=== PATIENT | male | born 1950 | race Caucasian/White ===

== ENCOUNTER → 2017-02-15 | Outpatient (CLI) | payer MEDICARE | END | disposition home or self-care (01) | LOC: GMAL 10:37 | PROVIDERS: ATTEND Family Medicine | DX: D51.3 Other dietary vitamin B12 deficiency anemia (principal); Z12.5 Encounter for screening for malignant neoplasm of prostate; E55.9 Vitamin D deficiency, unspecified | CPT/HCPCS: 82306; 82607; G0103 ==

== ENCOUNTER → 2017-04-20 | Outpatient (CLI) | payer MEDICARE ==
--- NOTE | 2017-04-21 12:51 | RAD ---
Three views of the pelvis radiographs and four views of both knees. INDICATION: Pain in left hip and right and left knees. COMPARISON: Pelvis radiograph from 05/11/2016. Right and left knee radiographs from 05/11/2016 FINDINGS: The visualized osseous structures appear mildly demineralized. Pelvis: Pelvic ring inlet appears maintained. There are moderate hypertrophic degenerative changes of both hip joints with joint space narrowing and osteophytosis, similar to prior. No acute fracture, dislocation or suspicious osseous lesions are identified. There are mild hypertrophic degenerative changes of the visualized spine. Right knee: There are mild hypertrophic degenerative changes of the right knee joint with joint space narrowing and osteophytosis primarily involving the medial and patellofemoral compartments. No acute fracture, dislocation or suspicious osseous lesions are identified. No joint effusion appreciated. There are vascular calcifications. Left knee: There are advanced, moderate to severe, hypertrophic degenerative changes of the left knee with joint space narrowing and osteophytosis primarily involving the medial and patellofemoral compartments. No acute fracture, dislocation or suspicious osseous lesions are identified. No joint effusion appreciated. There are vascular calcifications. IMPRESSION: 1. Similar osteoporotic changes involving the pelvis and both knees. 2. Similar osteoarthritic type degenerative changes of both hips and the visualized lumbar spine. No radiographic evidence for acute osseous normality the pelvis. 3. Similar moderate to severe left and moderate right osteoarthritic type degenerative changes of both knees, but no radiographic evidence for acute osseous normality of either knee. Electronically signed by: Brennon Stephen MD 04/21/2017 12:49 PM CDT Workstation: [id number]
== END | disposition home or self-care (01) ==
LOC: RAD 07:56
PROVIDERS: ATTEND Orthopaedic Surgery
DX: M25.561 Pain in right knee (principal); M25.551 Pain in right hip

== ENCOUNTER → 2017-04-30 | Outpatient (CLI) | payer MEDICARE | END | disposition home or self-care (01) | LOC: GMAL 14:19 | PROVIDERS: ATTEND Family Medicine | DX: R30.0 Dysuria (principal) ==

== ENCOUNTER → 2017-05-01 | Outpatient (CLI) | payer MEDICARE ==
--- NOTE | 2017-05-01 15:08 | RAD ---
EXAM DESCRIPTION: Chest,2 Views CLINICAL HISTORY: 67 years,Male,COUGH, R05 COMPARISON: July 16, 2016 FINDINGS: There are no consolidations. No effusions. No pneumothoraces. No nodules. Bony elements unremarkable for age. Old upper left rib fracture stable. IMPRESSION: Unremarkable chest for age stable Electronically signed by: Judah Jimenez MD 05/01/2017 3:06 PM CDT
== END | disposition home or self-care (01) ==
LOC: RAD 12:58
PROVIDERS: ATTEND Family Medicine
DX: R05 Cough (principal)

== ENCOUNTER → 2017-05-16 | Outpatient (CLI) | payer MEDICARE | END | disposition home or self-care (01) | LOC: RAD 08:02 | PROVIDERS: ATTEND Orthopaedic Surgery | DX: Z01.818 Encounter for other preprocedural examination (principal) ==

== ENCOUNTER 2017-05-29 05:50 | Inpatient (IN) | payer MEDICARE ==
--- NOTE | 2017-05-24 15:47 | HP ---
CHIEF COMPLAINT: Bilateral knee pain. HISTORY OF PRESENT ILLNESS: Mr. Yancey is a 67 year-old male with a history of severe knee pain. Mr. Yancey has a diagnosis of advanced arthritis and because of the advanced nature of the arthritis and severe knee pain associated with it, he has requested operative intervention. After discussing the risks, benefits, and alternatives to that, he has given informed consent for that. PAST SURGICAL HISTORY: He does not have a current list but has had multiple surgical interventions in the past. CURRENT MEDICATIONS: 1. Amlodipine. 2. Atorvastatin. 3. Carvedilol. 4. Ferrous gluconate. 5. Finasteride. 6. Gabapentin. 7. Hydrochlorothiazide. 8. Dexilant. 9. Metformin. 10. Prazosin. 11. Sertraline. 12. Zolpidem. 13. Cyanocobalamin. 14. Multiple vitamins. ALLERGIES: NO KNOWN DRUG ALLERGIES. FAMILY HISTORY: None pertinent to today's complaints. SOCIAL HISTORY: He does not drink, smoke or use any illicit drugs. REVIEW OF SYSTEMS: Negative except as indicated in the History of Present Illness. PHYSICAL EXAMINATION: VITAL SIGNS: Blood pressure 155/95, pulse 62, height 6' 1", weight 275. MENTAL STATUS: The patient is awake, alert, and is able to give a good history and participate in the physical. The patient is oriented to person, place and time. SKIN: Normal tone and turgor. HEENT: Normocephalic, atraumatic. Pupils equal, round and reactive. Mucosal membranes are moist. NECK: Normal range of motion. No thyromegaly, no lymphadenopathy. CHEST: Normal respiratory excursion. CARDIAC: Regular rate and rhythm. No murmurs, rubs or gallops. MUSCULOSKELETAL: The bilateral upper extremities show full active range of motion without significant pain. Sensation is intact in the extremities and were warm and well perfused. He has no deformity. No crepitus with range of motion. The bilateral hips show range of motion without significant pain. Both knees show full extension with crepitus throughout his range of motion, but his range of motion is to about 120 degrees of flexion bilaterally today. Sensation is intact. He does have slight varus deformities bilaterally but both are warm and well perfused. There does not appear to be any varus, valgus , anterior or posterior laxity. X-RAYS: X-rays show severe arthritis. ASSESSMENT: 1. Bilateral knee arthritis. PLAN: The plan at this point is for bilateral total knee arthroplasty. We have discussed the risks, benefits, and alternatives to that. In addition to the fact that a bilateral total knee arthroplasty does carry increased risk as well as the possibility of a longer recovery. He has expressed understanding of all of the risks associated with this and he has given informed consent. #[id number] [facility]
[~2017-05-29 05:50] MED LIST: LACTATED RINGERS 1,000 ML ONE; SODIUM CHL 0.9% 100ML MINI-BAG 100 ML IVPB ONE; SODIUM CHLORIDE 0.9% 250ML 250 ML ONE; VANCOMYCIN HCL INJ 1,000 MG VIAL IVPB ONE; ceFAZolin SODIUM 1 GM VIAL ONE
[2017-05-29] MEDS ORDERED: TRANEXAMIC ACID 1,000 MG/10 ML VIAL ONE ×3 (05:53→05:54)
[2017-05-29] MEDS ORDERED: SODIUM CHLORIDE 0.9% 100ML 100 ML IVPB ONE (05:58)
[2017-05-29] MEDS ORDERED: MIDAZOLAM INJ 5 MG/5 ML VIAL ONE (06:38)
[2017-05-29] MEDS ORDERED: MORPHINE SULFATE *EPIDURAL* 0.5 MG/ML VIAL ONE (06:39)
[2017-05-29] MEDS ORDERED: fentaNYL CITRATE INJ 50 MCG/ML AMP ONE (06:39)
[2017-05-29] MEDS ORDERED: ACETAMINOPHEN IV 1000MG 100 ML ONE (06:57)
[2017-05-29] MEDS ORDERED: ROCURONIUM BROMIDE 10 MG/ML VIAL ONE ×2 (07:05→10:41)
[2017-05-29] MEDS ORDERED: ELECTROLYTE-A 1,000 ML IVS ONE ×2 (08:31→12:31)
[2017-05-29] MEDS ORDERED: DEXAMETHASONE INJ 10 MG/ML VIAL ONE (09:00)
[2017-05-29] MEDS ORDERED: ceFAZolin SODIUM 1 GM VIAL ONE (09:00)
[2017-05-29] MEDS ORDERED: METOCLOPRAMIDE HCL INJ 10 MG/2 ML VIAL ONE (09:00)
[2017-05-29] MEDS ORDERED: ePHEDrine SULF 50 MG/ML ONE (09:00)
[2017-05-29] MEDS ORDERED: ONDANSETRON INJ 4 MG/2 ML VIAL ONE (09:00)
[2017-05-29] MEDS ORDERED: PHENYLEPHRINE INJ 1ML 10 MG/ML VIAL ONE (09:00)
[2017-05-29] MEDS ORDERED: SODIUM CHLORIDE 0.9% 50 ML VIAL ONE (09:00)
[2017-05-29] MEDS ORDERED: PROPOFOL 200 MG/20 ML VIAL IV ONE (09:00)
[2017-05-29] MEDS: VANCOMYCIN HCL INJ 1,000 MG VIAL IVPB ONE ×3 (09:30→12:13)
[2017-05-29] MEDS: ceFAZolin SODIUM 1 GM VIAL ONE ×4 (09:30→12:13)
[2017-05-29] MEDS: BUPIVACAINE 0.25% INJ 30 ML VIAL INJ ONE ×4 (09:50→12:51)
[2017-05-29] MEDS ORDERED: ZOLPIDEM TARTRATE 5 MG TAB PO PRN (10:07)
[2017-05-29] MEDS ORDERED: ALUMINUM & MAGNESIUM HYDROXIDE 30 ML UD PO PRN (10:07)
[2017-05-29] MEDS ORDERED: ACETAMINOPHEN 325 MG TAB PO PRN (10:07)
[2017-05-29] MEDS ORDERED: traMADol HCL 50 MG TAB PO PRN (10:07)
[2017-05-29] MEDS ORDERED: BISACODYL SUPPOSITORY 10 MG PR PRN (10:07)
[2017-05-29] MEDS ORDERED: TEMAZEPAM 15 MG CAP PO PRN (10:07)
[2017-05-29] MEDS ORDERED: SODIUM CHLORIDE 0.9% (FLUSH) 10 ML SYG IV PRN (10:07)
[2017-05-29] MEDS ORDERED: TRANEXAMIC ACID INJ 1,000 MG in SODIUM CHLORIDE 0.9% 100ML 100 ML IVPB ONE (10:07)
[2017-05-29] MEDS ORDERED: ONDANSETRON INJ 4 MG/2 ML VIAL IV PRN (10:07)
[2017-05-29] MEDS ORDERED: PROMETHAZINE HCL INJ 12.5 MG in SODIUM CHLORIDE 0.9% 50ML 50 ML IVPB PRN (10:07)
[2017-05-29] MEDS ORDERED: MAGNESIUM HYDROXIDE 30 ML UD PO PRN (10:07)
[2017-05-29] MEDS ORDERED: PROMETHAZINE HCL INJ 25 MG in SODIUM CHLORIDE 0.9% 50ML 50 ML IVPB PRN (10:07)
[2017-05-29] MEDS ORDERED: NALOXONE HCL INJ 0.4 MG/ML VIAL IV PRN (10:07)
[2017-05-29] MEDS ORDERED: HYDROcodone 5MG/APAP 325MG 1 EA TAB PO PRN (10:07)
[2017-05-29] MEDS ORDERED: BENZOCAINE-MENTH LOZ (CEPACOL) 1 EA LOZ MT PRN (10:07)
[2017-05-29] MEDS ORDERED: MORPHINE SULFATE INJ 10 MG/ML VIAL IM PRN (10:07)
[2017-05-29] MEDS ORDERED: DEX 5% W/NACL 0.45% 1000ML 1,000 ML IVS PRN (10:07)
[2017-05-29] MEDS ORDERED: ACETAMINOPHEN 500 MG TAB PO PRN (10:07)
[2017-05-29] MEDS ORDERED: MORPHINE SULFATE INJ 10 MG/ML VIAL IV PRN (10:07)
[2017-05-29] MEDS ORDERED: ceFAZolin SODIUM 1 GM VIAL IVPB ONE (10:27)
[2017-05-29] MEDS ORDERED: MORPHINE PCA 1 MG/ML 100ML 1 BAG in PREMIX BAG 1 BAG IVPB SCH (10:30)
[2017-05-29] MEDS ORDERED: MORPHINE PCA 1 MG/ML 100 ML BAG IVPB ONE (11:25)
[2017-05-29] MEDS ORDERED: INSULIN LISPRO 100 UNITS/ML PEN SUBCU ONE (13:31)
[2017-05-29] MEDS ORDERED: MORPHINE SULFATE INJ 10 MG/ML VIAL ONE (13:36)
[2017-05-29] MEDS: IV SET AND CAP CHANGE INJ INJ SCH (14:50)
[2017-05-29] MEDS ORDERED: CEFAZOLIN SODIUM 2 GRAMS IV 50 ML IVPB ONE ×2 (16:08→20:11)
[2017-05-29] MEDS: CEFAZOLIN SODIUM 2 GRAMS IV 2 GM in PREMIX BAG 1 BAG IVPB SCH ×2 (16:31→23:56)
[2017-05-29] MEDS: CELECOXIB 100 MG CAP PO SCH (16:31)
[2017-05-29] MEDS ORDERED: DEXTROSE 50% 25 GM/50 ML SYG IV PRN (17:23)
[2017-05-29] MEDS ORDERED: GLUCAGON INJ 1 MG VIAL SUBCU PRN (17:23)
[2017-05-29] MEDS ORDERED: SODIUM CHLORIDE 0.9% 250ML 250 ML ONE (17:31)
[2017-05-29] MEDS ORDERED: VANCOMYCIN HCL INJ 1,000 MG VIAL IVPB ONE (17:31)
[2017-05-29] MEDS: INSULIN LISPRO 100 UNITS/ML PEN SUBCU SCH ×2 (17:33→21:04)
[2017-05-29] MEDS: VANCOMYCIN HCL INJ 1,000 MG in SODIUM CHLORIDE 0.9% 250ML 250 ML IVPB SCH (17:34)
[2017-05-29] MEDS ORDERED: diphenhydrAMINE HCL 50 MG/ML VIAL IV PRN (18:38)
[2017-05-29] MEDS ORDERED: metFORMIN HCL 500 MG TAB ONE (20:10)
[2017-05-29] MEDS ORDERED: ATORVASTATIN 20 MG TAB PO ONE (20:10)
[2017-05-29] MEDS ORDERED: ZOLPIDEM TARTRATE 10 MG TAB ONE (20:11)
[2017-05-29] MEDS: PRAZOSIN HCL 1 MG CAP PO SCH (20:25)
[2017-05-29] MEDS: DOCUSATE CALCIUM 240 MG CAP PO SCH (20:26)
[2017-05-29] MEDS: GABAPENTIN 100 MG CAP PO SCH (20:30)
--- NOTE | 2017-05-29 20:52 | CONS ---
SUPERVISING PHYSICIAN: Fabricio Hermosillo M.D. CHIEF COMPLAINT: Bilateral knee pain. HISTORY OF PRESENT ILLNESS: This is a 67 year-old male patient who has a history of severe bilateral knee pain. He has advanced arthritis in both knees. Due to this severe pain and ongoing debilitation in both knees, he has requested Dr. Ariel Farley, orthopedic surgeon, for operative intervention. I am seeing the patient postoperatively after bilateral total knee arthroplasty. PAST MEDICAL HISTORY: 1. Diabetes mellitus type 2 on oral therapy as well as insulin therapy. 2. Coronary artery disease with a history of myocardial infarction in June 2004. 3. Hypertension. 4. Gastroesophageal reflux disease. 5. Hyperlipidemia. PAST SURGICAL HISTORY: 1. Right carpal tunnel surgery. OUTPATIENT MEDICATIONS: Per the EMR and awaiting verification. ALLERGIES: TRIPLE ANTIBIOTIC OINTMENT. FAMILY HISTORY: Positive for cancer. His mother had lung cancer and his dad had liver cancer as well as diabetes and congestive heart failure. 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 He stopped smoking in 2003. He denies any ETOH or illicit drug use. REVIEW OF SYSTEMS: GENERAL: Denies fever, fatigue or weight changes. HEENT: Denies sinus symptoms, ear pain, vision changes or sore throat. RESPIRATORY: Denies coughing, wheezing or shortness of breath. CARDIOVASCULAR: Denies chest pain, palpitations or tachycardia. GASTROINTESTINAL: Denies nausea, vomiting, diarrhea or constipation. GENITOURINARY: Denies hematuria, dysuria, nocturia. MUSCULOSKELETAL: As per the History of Present Illness. NEUROLOGIC: Denies headache, seizures or dizziness. PHYSICAL EXAMINATION: VITAL SIGNS: Temperature 99.3, heart rate 91, blood pressure 155/89, respiratory rate 16, O2 sat is 96% on 2 liters nasal cannula. GENERAL: This is a 67 year-old male patient who is lying in his hospital bed. He is in no acute distress. HEENT: Normocephalic and atraumatic. Pupils are equal and reactive. Oropharynx is clear. NECK: Supple without mass. CHEST: Clear to auscultation bilaterally. There is equal rise and fall of the chest with inspiration and expiration. HEART: Regular rate and rhythm. ABDOMEN: Soft, nondistended, non-tender. Bowel sounds are positive. EXTREMITIES: Bilateral pedal pulses are palpable at +2. There is no cyanosis or edema to the lower extremities. He has an Iceman in place to bilateral knees. NEUROLOGIC: He is somewhat lethargic but he is oriented times three. LABORATORY: Hemoglobin 13.1, hematocrit 40.1. Blood sugars have run between 168 to 233. Urine is basically within normal limits with the exception of his urine glucose is 500. All other labs and films have been reviewed vis the EMR. IMPRESSION: 1. Bilateral knee arthritis status post bilateral total knee arthroplasty per Dr. Areil Farley, orthopedic surgeon postoperative day zero. 2. Diabetes mellitus type 2. 3. Hypertension. 4. Coronary artery disease. 5. Gastroesophageal reflux disease. 6. Hyperlipidemia. PLAN: We will continue present supportive care. I have resumed his home medications. I have ordered a.c. and h.s. blood sugars with sliding scale insulin. I have encouraged good pulmonary hygiene. He will start physical therapy tomorrow for strengthening and conditioning. Orthopedic issues will be per Dr. Farley, orthopedic surgeon. Otherwise we will continue to monitor the patient closely and follow as needed. Dr. Hermosillo is the collaborating physician available for consultation. #[id number] [facility]
[2017-05-29] MEDS ORDERED: ZOLPIDEM TARTRATE 5 MG TAB PO SCH (21:00)
[2017-05-29] MEDS ORDERED: NON-FORMULARY MEDICATION 1 EA MIS (Metformin Hcl [Metformin Hcl] 1,000 MG) PO SCH (21:00)
[2017-05-29] MEDS ORDERED: ATORVASTATIN CALCIUM 20 MG PO SCH (21:00)
[2017-05-29] MEDS: SODIUM CHLORIDE 0.45% 1000ML 1,000 ML IVS PRN (22:01)
[2017-05-30] MEDS ORDERED: SODIUM CHLORIDE 0.9% 250ML 250 ML ONE ×3 (00:43→19:44)
[2017-05-30] MEDS ORDERED: VANCOMYCIN HCL INJ 1,000 MG VIAL IVPB ONE ×3 (00:43→19:46)
[2017-05-30] MEDS: ENOXAPARIN SODIUM 30 MG/0.3 ML SYG SUBCU SCH ×2 (00:45→12:49)
[2017-05-30] MEDS: VANCOMYCIN HCL INJ 1,000 MG in SODIUM CHLORIDE 0.9% 250ML 250 ML IVPB SCH ×2 (05:54→18:17)
[2017-05-30] MEDS ORDERED: CARVEDILOL 12.5 MG TAB ONE (08:16)
[2017-05-30] MEDS ORDERED: metFORMIN HCL 500 MG TAB ONE (08:17)
[2017-05-30] MEDS ORDERED: FINASTERIDE 5 MG TAB ONE (08:17)
[2017-05-30] MEDS ORDERED: hydroCHLOROthiazide 25 MG TAB ONE (08:17)
[2017-05-30] MEDS ORDERED: CEFAZOLIN SODIUM 2 GRAMS IV 50 ML IVPB ONE ×3 (08:18→19:45)
[2017-05-30] MEDS: INSULIN LISPRO 100 UNITS/ML PEN SUBCU SCH ×4 (08:19→20:53)
[2017-05-30] MEDS: CARVEDILOL 12.5 MG TAB PO SCH (08:22)
[2017-05-30] MEDS: metFORMIN HCL 500 MG TAB PO SCH ×2 (08:22→17:14)
[2017-05-30] MEDS: FINASTERIDE 5 MG TAB PO SCH (08:23)
[2017-05-30] MEDS: CEFAZOLIN SODIUM 2 GRAMS IV 2 GM in PREMIX BAG 1 BAG IVPB SCH ×3 (08:23→23:46)
[2017-05-30] MEDS: hydroCHLOROthiazide 25 MG TAB PO SCH (08:23)
[2017-05-30] MEDS: CELECOXIB 100 MG CAP PO SCH ×2 (08:23→17:14)
[2017-05-30] MEDS: MAGNESIUM OXIDE 400 MG TAB PO SCH (08:23)
[2017-05-30] MEDS: SERTRALINE HCL 50 MG TAB PO SCH (09:29)
--- NOTE | 2017-05-30 09:50 | RAD ---
EXAM DESCRIPTION: Knee,Left 2 or More Views (accession [id number]), Knee,Right 2 or More Views (accession [id number]) CLINICAL HISTORY: 67 years, Male, TKA COMPARISON: April 20, 2017 TECHNIQUE: Two views of each knee FINDINGS: Right knee is postoperative with extensive soft tissue gas surrounding the distal femur. Metallic radiopaque femoral and tibial articular components have been placed and are well aligned. A lucent patellar articular surface is not evident. Right knee prosthesis replaces the degenerative [place] knee articular surfaces seen April 20, 2017. The left knee demonstrates total knee replacement with periarticular and subcutaneous gas anterior to the knee with satisfactory alignment of metallic femoral and tibial articular surfaces replacing the [place] knee seen on April 20, 2017. Alignment is anatomic with no evidence of loosening. Patellar articular surface placement is not evident. IMPRESSION: 1. Satisfactory bilateral total knee replacements without patellar articular surfaces placed. Alignment is satisfactory bilaterally. Electronically signed by: Fabricio De La Cruz MD 05/30/2017 9:49 AM CDT
--- NOTE | 2017-05-30 09:50 | RAD ---
EXAM DESCRIPTION: Knee,Left 2 or More Views (accession [id number]), Knee,Right 2 or More Views (accession [id number]) CLINICAL HISTORY: 67 years, Male, TKA COMPARISON: April 20, 2017 TECHNIQUE: Two views of each knee FINDINGS: Right knee is postoperative with extensive soft tissue gas surrounding the distal femur. Metallic radiopaque femoral and tibial articular components have been placed and are well aligned. A lucent patellar articular surface is not evident. Right knee prosthesis replaces the degenerative [place] knee articular surfaces seen April 20, 2017. The left knee demonstrates total knee replacement with periarticular and subcutaneous gas anterior to the knee with satisfactory alignment of metallic femoral and tibial articular surfaces replacing the [place] knee seen on April 20, 2017. Alignment is anatomic with no evidence of loosening. Patellar articular surface placement is not evident. IMPRESSION: 1. Satisfactory bilateral total knee replacements without patellar articular surfaces placed. Alignment is satisfactory bilaterally. Electronically signed by: Fabricio De La Cruz MD 05/30/2017 9:49 AM CDT
--- NOTE | 2017-05-30 11:03 | PN ---
DATE: 05/30/17 SUBJECTIVE: Mr. Yancey is doing well. He is sitting up in a chair and has his knees bent do about 85 degrees. OBJECTIVE: Afebrile. Vital signs stable. Dressings are clean, dry, and intact. ASSESSMENT: Status post total knee arthroplasty bilaterally. PLAN: The plan at this point is for him to continue with his weight-bearing as tolerated status and progress with his CPM as tolerated. [facility][id number] [facility]
--- NOTE | 2017-05-30 11:47 | OP ---
DATE OF PROCEDURE: 05/29/17 PREOPERATIVE DIAGNOSIS: 1. Bilateral knee arthritis. POSTOPERATIVE DIAGNOSIS: 1. Bilateral knee arthritis. PROCEDURE: 1. Bilateral total knee arthroplasty. SURGEON: Ariel Farley MD. EXECUTIVE MEETING MANAGER: Kike Gale CST, SA-Crystal. ANESTHESIA: General. COMPLICATIONS: None. FINDINGS: Severe arthritis of both knees. INDICATION: Mr. Yancey has a history of severe and worsening knee pain bilaterally. He has also noticed worsening deformity. Because of his failure of conservative measures, he has requested operative intervention. After discussing the risks, benefits and alternatives to operative therapy, the patient has given informed consent for total knee arthroplasty. We did specifically discuss the risks of undergoing bilateral total knee arthroplasty and the potential that he could have some increased difficulty with recovery. PROCEDURE: The patient was brought to the Operating Room and placed in supine position. He had chosen to undergo the right total knee and following placement in the supine position, anesthesia was induced. The right leg was sterilely prepped and draped and a midline incision with a medial parapatellar approach was used. The distal femur was exposed and an intramedullary guide was used to make the distal femoral cut. Following distal femoral cut, the anterior, posterior, and chamfer cuts were made. The ACL was transected. Bilateral meniscectomy was performed and the proximal tibial cut was made using intramedullary guide. Trial base plate, trial polyethylene and trial femur were placed. The knee was reduced and the knee was taken through a range of motion. The patella tracked well and there was stability in both the anterior/ posterior and varus/valgus planes. The trial components were removed and the bony surfaces were thoroughly irrigated. Following irrigation, the surfaces the final components were cemented into place. The knee was reduced and the excess cement was removed. The remaining cement was allowed to cure. Following curing, the knee was very thoroughly irrigated and closed with reapproximation of the arthrotomy using PDS, followed by closure of the subcuticular tissues with a combination of running and interrupted subcuticular sutures. Sterile dressing was placed. The room was entirely broken down. The entire staff was re-gowned and re- draped and complete new second set of sterile instruments were opened. The left leg was sterilely prepped and draped and the procedure was re-performed in its entirety on the left side. The distal femur was exposed, the cuts were made and then the tibial cut was made. The knee was trialed. Following trialing and confirmation and range of motion stability, the bony surfaces were thoroughly irrigated, dried and the final components were cemented into place. The wound was very thoroughly irrigated and closed with reapproximation of the arthrotomy, followed by closure of the subcuticular tissues with a combination of running and interrupted subcuticular sutures. Sterile dressing was placed. The patient was awoken from anesthesia and taken to Recovery. POSTOPERATIVE INSTRUCTIONS: The patient will be weight-bearing as tolerated on postoperative day 1. COMPONENTS: [employer] Triathlon knee, size 8 femur bilaterally, size 8 tibia bilaterally, 9 mm insert bilaterally. [facility][id number] [facility]
--- NOTE | 2017-05-30 11:55 | PN ---
SUPERVISING PHYSICIAN: Fabricio Hermosillo MD DATE: 05/30/17 SUBJECTIVE: The patient is sitting up in his hospital bed. He is somewhat lethargic. He complains of pain, but says the pain is not unexpected given his operative procedure. His is at the bedside. He has no complaints of chest pain, shortness of breath, nausea or vomiting. OBJECTIVE: VITAL SIGNS: T-max 24 hours is 100. Pulse 88. Blood pressure 145/ 81. Respiratory rate 18. O2 saturation 95% on 2 liters nasal cannula. LUNGS: Essentially clear to auscultation bilaterally, slightly diminished at the bases. CARDIAC: Regular rate and rhythm. ABDOMEN: Soft, nondistended, nontender. Bowel sounds are positive. EXTREMITIES: His right knee is in a CPM machine. Bilateral knees have Woo bandages covering the dressing. They are dry and intact. Bilateral pedal pulses are palpable at +2. There is no pedal edema bilaterally. NEUROLOGIC: He is sleepy, but he answers questions appropriately. He is oriented times three. LABORATORY: Hemoglobin 11.5, hematocrit 34.7. Blood sugars have run between 168 and 272. There are no other labs and films to report at this time. ASSESSMENT: 1. Bilateral knee arthritis status post bilateral total knee arthroplasty per Dr. Ariel Farley, orthopedic surgeon, postoperative day 1. 2. Diabetes mellitus, type 2. 3. Hypertension. 4. Coronary artery disease. 5. Gastroesophageal reflux disease. 6. Hyperlipidemia. PLAN: We will continue present supportive care. We spoke at length with the patient and his to encourage good pulmonary hygiene. I have also ordered some additional breathing treatments as well as some IPPB treatments. He will continue with strengthening and conditioning per patients and orthopedic issues will be per Dr. Farley. Otherwise, we will continue to monitor the patient closely and follow as needed. Dr. Hermosillo is the collaborating physician and available for consultation. #[id number] [facility]
[2017-05-30] MEDS: LEVALBUTEROL NEBS 0.31 MG/3 ML VIAL NEB PRN (12:55)
[2017-05-30] MEDS ORDERED: ATORVASTATIN 20 MG TAB PO ONE (19:44)
[2017-05-30] MEDS ORDERED: ZOLPIDEM TARTRATE 10 MG TAB ONE (19:46)
[2017-05-30] MEDS: DOCUSATE CALCIUM 240 MG CAP PO SCH (20:25)
[2017-05-30] MEDS: PRAZOSIN HCL 1 MG CAP PO SCH (20:25)
[2017-05-30] MEDS: GABAPENTIN 100 MG CAP PO SCH (20:25)
[2017-05-30] MEDS: ZOLPIDEM TARTRATE 10 MG TAB PO SCH (20:25)
[2017-05-30] MEDS: ATORVASTATIN 20 MG TAB PO SCH (20:25)
[2017-05-30] MEDS: SODIUM CHLORIDE 0.45% 1000ML 1,000 ML IVS PRN (23:45)
[2017-05-31] MEDS: ENOXAPARIN SODIUM 30 MG/0.3 ML SYG SUBCU SCH ×2 (00:55→12:27)
[2017-05-31] MEDS: VANCOMYCIN HCL INJ 1,000 MG in SODIUM CHLORIDE 0.9% 250ML 250 ML IVPB SCH (06:24)
[2017-05-31] MEDS ORDERED: CEFAZOLIN SODIUM 2 GRAMS IV 50 ML IVPB ONE (07:42)
[2017-05-31] MEDS: INSULIN LISPRO 100 UNITS/ML PEN SUBCU SCH ×4 (08:00→20:49)
[2017-05-31] MEDS: CELECOXIB 100 MG CAP PO SCH ×2 (08:01→16:52)
[2017-05-31] MEDS: metFORMIN HCL 500 MG TAB PO SCH ×2 (08:01→16:52)
--- NOTE | 2017-05-31 08:19 | PN ---
DATE: 05/31/17 SUBJECTIVE: Mr. Yancey is doing well. OBJECTIVE: Afebrile. Vital signs stable. Wounds are clean. There are no signs or symptoms of infection. ASSESSMENT: Status post bilateral total knee arthroplasty. PLAN: He will continue with his weight-bearing as tolerated. #[id number] [facility]
[2017-05-31] MEDS: SERTRALINE HCL 50 MG TAB PO SCH (09:04)
[2017-05-31] MEDS: CYCLOBENZAPRINE HCL 10 MG TAB PO PRN (09:04)
[2017-05-31] MEDS: MAGNESIUM OXIDE 400 MG TAB PO SCH (09:04)
[2017-05-31] MEDS: hydroCHLOROthiazide 25 MG TAB PO SCH (09:04)
[2017-05-31] MEDS: CARVEDILOL 12.5 MG TAB PO SCH (09:05)
[2017-05-31] MEDS: SODIUM CHLORIDE 0.9% (FLUSH) 10 ML SYG IV SCH ×2 (09:05→20:47)
[2017-05-31] MEDS: FINASTERIDE 5 MG TAB PO SCH (09:05)
[2017-05-31] MEDS: CEFAZOLIN SODIUM 2 GRAMS IV 2 GM in PREMIX BAG 1 BAG IVPB SCH (09:34)
[2017-05-31] MEDS: HYDROcodone 10MG/APAP 325MG 1 EA TAB PO PRN ×2 (11:02→21:09)
[2017-05-31] MEDS ORDERED: MAGNESIUM HYDROXIDE 30 ML UD PO ONE (16:35)
--- NOTE | 2017-05-31 17:27 | PN ---
DATE: 05/31/17 SUPERVISING PHYSICIAN: Fabricio Hermosillo M.D. SUBJECTIVE: The patient is lying in bed. He has his right leg on the CPM machine. He has no complaints of nausea, vomiting, chest pain or shortness of breath. He does complain of some constipation. He also said he walked to the nurses' station today and felt pretty good. OBJECTIVE: VITAL SIGNS: He is afebrile, heart rate 83, blood pressure 128/64, respiratory rate 24, O2 sat is 94% on 2 liters nasal cannula. RESPIRATORY: Essentially clear to auscultation bilaterally. CARDIAC: Regular rate and rhythm. ABDOMEN: Soft, nondistended non-tender. Bowel sounds are positive. EXTREMITIES: He has bilateral dressings to his knees that are dry and intact. Bilateral pedal pulses are palpable at +2. Minimal pedal edema. NEUROLOGIC: He is awake, alert and oriented times three. LABORATORY: Blood glucoses have run between 148 and 313. There are no other labs and films to report at this time. ASSESSMENT: 1. Bilateral knee arthritis status post bilateral total knee arthroplasty per Dr. Ariel Farley, orthopedic surgeon, postoperative day #2. 2. Diabetes mellitus type 2. 3. Hypertension. 4. Coronary artery disease. 5. Gastroesophageal reflux disease. 6. Hyperlipidemia. PLAN: We will continue present supportive care. I have given him some Milk of Magnesia for his constipation and have also restarted his insulin 70/30. Monitor his blood sugars closely as they are a little bit high at this time. I have continued to encourage good pulmonary hygiene. He will continue with his strengthening and conditioning per Physical Therapy. Orthopedic issues will be per Dr. Farley. We will continue to monitor him closely and follow as needed. Dr. Hermosillo is the collaborating physician available for consultation. #[id number] [facility]ady
[2017-05-31] MEDS: PRAZOSIN HCL 1 MG CAP PO SCH (20:45)
[2017-05-31] MEDS: ZOLPIDEM TARTRATE 10 MG TAB PO SCH (20:46)
[2017-05-31] MEDS: GABAPENTIN 100 MG CAP PO SCH (20:46)
[2017-05-31] MEDS: DOCUSATE CALCIUM 240 MG CAP PO SCH (20:46)
[2017-05-31] MEDS: ATORVASTATIN 20 MG TAB PO SCH (20:46)
[2017-05-31] MEDS: INSULIN 70/30 (HUMAN) 100 UNITS/ML PEN SUBCU SCH (20:46)
[2017-05-31] MEDS: LISINOPRIL 10 MG TAB PO SCH (20:46)
[2017-06-01] MEDS: ENOXAPARIN SODIUM 30 MG/0.3 ML SYG SUBCU SCH ×2 (01:39→15:40)
[2017-06-01] MEDS: INSULIN LISPRO 100 UNITS/ML PEN SUBCU SCH ×6 (08:09→21:05)
[2017-06-01] MEDS: CELECOXIB 100 MG CAP PO SCH ×2 (08:12→17:49)
[2017-06-01] MEDS: metFORMIN HCL 500 MG TAB PO SCH ×2 (08:12→18:10)
[2017-06-01] MEDS: LEVALBUTEROL NEBS 0.31 MG/3 ML VIAL NEB PRN (08:39)
[2017-06-01] MEDS: INSULIN 70/30 (HUMAN) 100 UNITS/ML PEN SUBCU SCH ×2 (09:17→21:06)
[2017-06-01] MEDS: HYDROcodone 10MG/APAP 325MG 1 EA TAB PO PRN ×2 (10:10→20:58)
[2017-06-01] MEDS: hydroCHLOROthiazide 25 MG TAB PO SCH (10:23)
[2017-06-01] MEDS: MAGNESIUM OXIDE 400 MG TAB PO SCH (10:23)
[2017-06-01] MEDS: LISINOPRIL 10 MG TAB PO SCH ×2 (10:23→21:04)
[2017-06-01] MEDS: CARVEDILOL 12.5 MG TAB PO SCH (10:24)
[2017-06-01] MEDS: SERTRALINE HCL 50 MG TAB PO SCH (10:24)
[2017-06-01] MEDS: FINASTERIDE 5 MG TAB PO SCH (10:24)
[2017-06-01] MEDS: SODIUM CHLORIDE 0.9% (FLUSH) 10 ML SYG IV SCH ×2 (10:25→21:05)
[2017-06-01] MEDS: IV SET AND CAP CHANGE INJ INJ SCH (12:36)
[2017-06-01] MEDS: POLYETHYLENE GLYCOL 3350 17 GM PCKT PO SCH (15:41)
--- NOTE | 2017-06-01 18:00 | PN ---
DATE: 06/01/17 SUPERVISING PHYSICIAN: Fabricio Hermosillo M.D. SUBJECTIVE: The patient is sitting in the bedside chair having finished his physical therapy for the morning. He is doing fairly well with ambulation, except has significant difficulty getting from a sitting position to a standing position. Given that he is of significant body size and his family is unable to find any assistance with position changes for the patient's safety and family 's safety, discussion was that the patient probably needs to go to Swing Bed which will take place tomorrow should he show better control of his blood sugars. He remains afebrile and has had good pain control. OBJECTIVE: VITAL SIGNS: Temperature 98.3, pulse 74, blood pressure 148/71, respirations 18, satting 96% on nasal cannula at 1 liter at rest. I's and O's show a positive balance of 560 with 1260 in, 700 out. CHEST: Lungs were clear to auscultation bilaterally. HEART: Regular rate and rhythm. ABDOMEN: Obese but soft, non-tender. Positive bowel sounds. EXTREMITIES: Bilateral knees show dressings in place which are dry and intact with pulses distally strong and capillary refill being brisk. No signs of infection. NEUROLOGIC: He is alert and oriented times three. LABORATORY: Blood sugars remain elevated between 268 to 306. ASSESSMENT: 1. Postoperative day 3 for bilateral knee arthroplasty for advanced bilateral knee arthritis with procedure being performed by Dr. Ariel Farley. 2. Diabetes mellitus type 2, poorly controlled. 3. Hypertension. 4. Coronary artery disease. 5. Gastroesophageal reflux disease. 6. Hyperlipidemia. PLAN: Will anticipate discharge tomorrow to Swing Bed to get better control of his blood sugars. Today, he was restarted on his insulin 70/30. Will monitor those closely. I have also added 5 units a.c. coverage with his sliding scale. Will monitor that closely and as he starts normalizing his blood sugars, will back off and remain on his 70/30 with anticipation of again discharging to Swing Bed tomorrow. Will continue to follow the patient along with Physical Therapy and Dr. Farley, orthopedic surgeon. Until discharge and admission to Swing Bed, will monitor and treat appropriately. #[id number] [facility]
--- NOTE | 2017-06-01 20:43 | PCM.CORE ---
Physician DVT/VTE - Prophylaxis Currently: Patient already on anticoagulation therapy - Nurse DVT Assessment & Total Each Risk Factor Represents 5 Points: Elective Arthtroplasty Each Risk Factor Represents 2 Points: Age 60-74 Each Risk Factor is 1 Point: Obesity (BMI >25) DVT Assessment Score: 8 - 5 or more Very High Risk Treatments: Early Ambulation *, Sequential Compression Device Pharmacological: Enoxaparin 30mg SQ BID
[2017-06-01] MEDS ORDERED: PRAZOSIN 5 MG PO SCH (21:00)
[2017-06-01] MEDS ORDERED: MAGNESIUM HYDROXIDE 30 ML UD PO ONE (21:00)
[2017-06-01] MEDS ORDERED: BISACODYL SUPPOSITORY 10 MG PR ONE (21:00)
[2017-06-01] MEDS: DOCUSATE CALCIUM 240 MG CAP PO SCH (21:04)
[2017-06-01] MEDS: ATORVASTATIN 20 MG TAB PO SCH (21:04)
[2017-06-01] MEDS: ZOLPIDEM TARTRATE 10 MG TAB PO SCH (21:04)
[2017-06-01] MEDS: GABAPENTIN 100 MG CAP PO SCH (21:04)
[2017-06-02] MEDS: ENOXAPARIN SODIUM 30 MG/0.3 ML SYG SUBCU SCH ×2 (01:28→13:13)
[2017-06-02] MEDS: HYDROcodone 10MG/APAP 325MG 1 EA TAB PO PRN (07:24)
[2017-06-02] MEDS: INSULIN LISPRO 100 UNITS/ML PEN SUBCU SCH ×4 (07:55→13:12)
[2017-06-02] MEDS: metFORMIN HCL 500 MG TAB PO SCH (07:56)
[2017-06-02] MEDS: CELECOXIB 100 MG CAP PO SCH (07:56)
[2017-06-02] MEDS: SERTRALINE HCL 50 MG TAB PO SCH (09:40)
[2017-06-02] MEDS: FINASTERIDE 5 MG TAB PO SCH (09:40)
[2017-06-02] MEDS: INSULIN 70/30 (HUMAN) 100 UNITS/ML PEN SUBCU SCH (09:40)
[2017-06-02] MEDS: LISINOPRIL 10 MG TAB PO SCH (09:40)
[2017-06-02] MEDS: CARVEDILOL 12.5 MG TAB PO SCH (09:40)
[2017-06-02] MEDS: POLYETHYLENE GLYCOL 3350 17 GM PCKT PO SCH (09:40)
[2017-06-02] MEDS: MAGNESIUM OXIDE 400 MG TAB PO SCH (09:40)
[2017-06-02] MEDS: hydroCHLOROthiazide 25 MG TAB PO SCH (09:40)
[2017-06-02] MEDS: SODIUM CHLORIDE 0.9% (FLUSH) 10 ML SYG IV SCH (09:51)
[2017-06-02] MEDS: CYCLOBENZAPRINE HCL 10 MG TAB PO PRN (10:04)
[2017-06-02 12:19] VITALS: BP 185/78; TEMP 97.8; O2SAT 93
--- NOTE | 2017-06-02 13:26 | PN ---
DATE: 06/02/17 SUBJECTIVE: Mr. Yancey is subjectively doing really well. He is independent in transfers and mobilization. OBJECTIVE: He is afebrile. Vital signs are stable. Wounds are clear. There are no signs or symptoms of infection. ASSESSMENT: 1. Status post bilateral total knee arthroplasty. PLAN: The plan at this point is for discharge. Mr. Yancey seems to be doing really well and is independent on all functional levels. He has been given appropriate instructions for followup. He has been instructed to return immediately should any change in his condition occur. #[id number] [facility]
--- NOTE | 2017-06-06 16:42 | DS ---
SUPERVISING PHYSICIAN: Fabricio Hermosillo M.D. DISCHARGE DIAGNOSIS: 1. Postoperative day #4 for bilateral knee arthroplasty for advanced bilateral knee arthritis with procedure being performed by Dr. Ariel Farley. 2. Diabetes mellitus type 2, poorly controlled. 3. Hypertension. 4. Coronary artery disease. 5. Gastroesophageal reflux disease. 6. Hyperlipidemia. HISTORY OF PRESENT ILLNESS: Mr. Yancey is a 67 year-old male patient with a long history of bilateral knee pain. He has had advanced arthritis in both knees. Due to severe pain and ongoing debilitation in both knees, he requested Dr. Ariel Farley, orthopedic surgeon, to performed operative intervention. He had a bilateral knee arthroplasty done and was seen postoperatively prior to admission. LABORATORY: Postoperative H&H was 13.1 and 40.1, hemoglobin and hematocrit on 05/30/17 was 11.5 and 34.7. Blood sugars were elevated ranging from 216 to 259. Urinalysis was within normal limits, except for 500 of glucose. HOSPITAL COURSE: Mr. Yancey, as noted in the History of Present Illness, was admitted on 05/29/17 for bilateral knee arthroplasty as noted above. He tolerated the procedure well. The rest of his physical therapy was well enough to discharge on 06/02/17 to be continued in the outpatient setting for rehabilitation. PLAN: Mr. Yancey is discharged on 06/02/17 to have close clinical followup with Dr. Farley as directed. Wound care as instructed by Dr. Farley. He is to have [facility]. He is to continue with his home medications as directed and start new prescriptions as instructed. Diet at discharge was diabetic diet. Activity is as per Physical Therapy as tolerated. Walking only with a walker. Medications at discharge are : 1. Flexeril 10 mg every 8 hours as needed, #15. 2. [place] 5/325 one tablet every 4 hours, #[address] Farley. 3. MiraLAX 17 grams daily. 4. Xarelto 10 mg daily for 8 days. The patient's condition on discharge was stable and improved. #[id number] [facility]
== END 2017-06-02 13:40 | disposition home or self-care (01) | DRG 462 ==
LOC: AMB 05:50 → MS 14:22
PROVIDERS: ADMIT Orthopaedic Surgery; ATTEND Nurse Practitioner Family
PROC: 0SRC0J9 Replacement of Right Knee Joint with Synthetic Substitute, Cemented, Open Approach (ICD-10-PCS; 2017-05-29)
PROC: 0SRD0J9 Replacement of Left Knee Joint with Synthetic Substitute, Cemented, Open Approach (ICD-10-PCS; principal; 2017-05-29 07:00)
DX: M17.0 Bilateral primary osteoarthritis of knee (principal); E11.65 Type 2 diabetes mellitus with hyperglycemia; K59.00 Constipation, unspecified; I25.10 Atherosclerotic heart disease of native coronary artery without angina pectoris; I25.2 Old myocardial infarction; I10 Essential (primary) hypertension; K21.9 Gastro-esophageal reflux disease without esophagitis; E78.5 Hyperlipidemia, unspecified; Z88.1 Allergy status to other antibiotic agents; Z87.891 Personal history of nicotine dependence; Z79.84 Long term (current) use of oral hypoglycemic drugs; Z79.899 Other long term (current) drug therapy; Z79.4 Long term (current) use of insulin

== ENCOUNTER → 2017-08-27 | Outpatient (CLI) | payer MEDICARE ==
--- NOTE | 2017-08-28 07:48 | RAD ---
EXAM DESCRIPTION: Knee,Left Complete CLINICAL HISTORY: 67 years,Male,KNEE PAIN COMPARISON: May 29 2017 FINDINGS: The left knee demonstrates no fractures, dislocations, or other acute bony abnormalities. Total knee arthroplasty which appears unremarkable. Small enthesophyte on the quadriceps attachment to the patella The soft tissues demonstrate moderate calcification of the mid superficial femoral artery. Possible small joint effusion. IMPRESSION: Unremarkable left total knee arthroplasty Electronically signed by: Judah Jimenez MD 08/28/2017 7:47 AM [facility]
== END | disposition home or self-care (01) ==
LOC: RAD 08:03
PROVIDERS: ATTEND Orthopaedic Surgery
DX: M25.562 Pain in left knee (principal)

== ENCOUNTER → 2017-09-20 | Outpatient (CLI) | payer MEDICARE | END | disposition home or self-care (01) | LOC: GMAL 10:52 | PROVIDERS: ATTEND Family Medicine | DX: D53.9 Nutritional anemia, unspecified (principal) ==

== ENCOUNTER 2017-10-19 05:29 | Day surgery (SDC) | payer MEDICARE ==
[2017-10-19] MEDS ORDERED: LACTATED RINGERS 1,000 ML ONE (06:03)
[2017-10-19] MEDS ORDERED: PROPOFOL 200 MG/20 ML VIAL IV ONE (07:00)
[2017-10-19] MEDS ORDERED: LIDOCAINE 1% 10 ML VIAL INJ ONE (07:00)
[2017-10-19 07:53] VITALS: O2SAT 98
[2017-10-19 09:43] VITALS: BP 174/84; TEMP 97.4
--- NOTE | 2017-10-19 11:05 | OP ---
DATE OF PROCEDURE: 10/19/17 PREOPERATIVE DIAGNOSIS: 1. Arthrofibrosis of the left knee. POSTOPERATIVE DIAGNOSIS: 1. Arthrofibrosis of the left knee. PROCEDURE: 1. Closed manipulation. SURGEON: Ariel Farley MD. HAIRCUTTER: Kike Gale CST, SA-C. ANESTHESIA: Conscious sedation. COMPLICATIONS: None. FINDINGS: Preoperative range of motion of 5 to approximately 85 to 90 degrees. Postoperative range of motion was to about 110 to 115 degrees. INDICATION: Mr. Yancey has a history of total knee arthroplasty. He was doing well and subsequently had a fall. Secondary to that fall, he had to hold off on doing therapy and subsequently developed arthrofibrosis. Because of the limitation in his range of motion, he requested closed manipulation. After discussing the risks, benefits and alternatives to that, he gave informed consent. PROCEDURE: The patient was brought to the Operating Room and placed in supine position. Conscious sedation was administered and the patient's leg hyperflexed. Fluoroscopic images were taken to ensure no acute complications. After completion of the procedure, the patient was taken back to the Day Surgery Unit. POSTOPERATIVE INSTRUCTIONS: The patient will be doing physical therapy 7 days a week with the Sunday and Sunday portion done on his own. He will visit with physical therapy immediately following discharge today. He will followup with us in 2 weeks. #[id number] [facility]
== END 2017-10-19 09:40 | disposition home or self-care (01) ==
LOC: AMB 05:29
PROVIDERS: ATTEND Orthopaedic Surgery
DX: M24.662 Ankylosis, left knee (principal); I10 Essential (primary) hypertension; I25.10 Atherosclerotic heart disease of native coronary artery without angina pectoris; E11.9 Type 2 diabetes mellitus without complications; K21.9 Gastro-esophageal reflux disease without esophagitis; Z96.653 Presence of artificial knee joint, bilateral; I25.2 Old myocardial infarction; Z95.5 Presence of coronary angioplasty implant and graft; Z79.84 Long term (current) use of oral hypoglycemic drugs; Z79.899 Other long term (current) drug therapy
CPT/HCPCS: 01380; 27570; 36416; 76000; 82948; J3490; J7120

== ENCOUNTER 2017-10-28 13:23 | Emergency (ER) | payer MEDICARE ==
--- NOTE | 2017-10-28 14:39 | ED.PDOC ---
History of Present Illness - General Stated Complaint: SORE THORAT Time Seen by Provider: 10/28/17 14:37 Source: patient, RN notes reviewed Additional Information: 67 YEAR OLD WHITE MALE PRESENTS TO THE ED WITH COMPLAINTS OF SORE THROAT PAIN WITH SWALLOWING FEVER HEADACHE ONSET 24 HOURS HIS HAS BEEN DIAGNOSED WITH STREPTOCOCCAL PHARYNGITIS HE HAS TYPE II DM HTN CAD - History of Present Illness Timing/Duration: 24 hours Severity: moderate Improving Factors: nothing Associated Symptoms: denies symptoms Allergies/Adverse Reactions: Allergies NO KNOWN ALLERGY Allergy (Verified 09/09/16 15:50) Home Medications: Ambulatory Orders Ferrous Gluconate 325 mg PO DAILY 12/22/13 Finasteride 5 mg PO DAILY 12/22/13 Hydrochlorothiazide 25 mg PO DAILY 12/22/13 Insulin 70/30 (Human) [Humulin 70/30] 42 units SC BID 12/22/13 Insulin Aspart [Novolog] 16 units SUBCU PRN PRN 12/22/13 Metformin HCl 1,000 mg PO BID 12/22/13 Prazosin HCl 10 mg PO BEDTIME 12/22/13 Ranitidine HCl [Ranitidine [address]] 150 mg PO BID 12/22/13 Zolpidem Tartrate [Ambien] 10 mg PO BEDTIME 12/22/13 Sertraline HCl 200 mg PO DAILY 07/25/15 Atorvastatin Calcium [Lipitor] 20 mg PO BEDTIME 06/09/16 Carvedilol [Coreg] 25 mg PO DAILY 06/09/16 Gabapentin [Neurontin] 100 mg PO BEDTIME 06/09/16 Lisinopril [Prinivil] 20 mg PO BID 09/09/16 B-Complex Vitamins [Vitamin B Complex] 1 tab PO DAILY 05/28/17 Cholecalciferol [Vitamin D] 1,000 unit PO DAILY 05/28/17 Nitroglycerin [Nitrostat] 1 ea SL PRN PRN 05/28/17 [place]-3 Fatty Acids [Fish Oil] 500 mg PO DAILY 05/28/17 Cyclobenzaprine HCl [Flexeril] 10 mg PO Q8HR PRN #15 tab 06/02/17 HYDROcodone 5MG/APAP 325MG [[place] 5/325] 0 ea PO .Q4H #30 tab 06/02/17 Polyethylene Glycol 3350 [Miralax] 17 gm PO DAILY 06/02/17 Amoxicillin [Amoxil] 500 mg PO Q8HR #30 cap 10/28/17 Review of Systems - Review of Systems Constitutional: States: fever, malaise EENTM: States: throat pain Respiratory: States: no symptoms reported Cardiology: States: no symptoms reported Gastrointestinal/Abdominal: States: no symptoms reported Genitourinary: States: no symptoms reported Musculoskeletal: States: no symptoms reported Skin: States: no symptoms reported Neurological: States: no symptoms reported Endocrine: States: no symptoms reported Past Medical History (General) - Patient Medical History Hx Seizures: No Hx Stroke: No Hx Asthma: No Hx of COPD: No Hx Cardiac Disorders: No Hx Congestive Heart Failure: No Hx Pacemaker: No Hx Hypertension: Yes Hx Diabetes: Yes Hx Gastroesophageal Reflux: Yes Hx Cancer: No Hx MRSA: No - Vaccination History Hx Tetanus, Diphtheria Vaccination: No Hx Influenza Vaccination: Yes - 2014 Hx Pneumococcal Vaccination: Yes - Social History Hx Tobacco Use: No Hx Alcohol Use: No Hx Substance Use: No Hx Depression: No Hx Physical Abuse: No Hx Emotional Abuse: No Family Medical History - Family History Father Family History: No Known Physical Exam - Physical Exam General Appearance: Alert, Comfortable Eye Exam: bilateral normal Ears, Nose, Throat: hearing grossly normal, normal ENT inspection, pharyngeal erythema Neck: non-tender, full range of motion, supple Respiratory: chest non-tender, lungs clear, normal breath sounds, no respiratory distress, no accessory muscle use Cardiovascular/Chest: normal peripheral pulses, regular rate, rhythm, no edema Peripheral Pulses: radial,right: 2+, radial,left: 2+, femoral,right: 2+, femoral ,left: 2+ Extremity: normal range of motion, non-tender Neurologic: gi physician II-XII nml as tested, no motor/sensory deficits, alert, oriented x 3 Departure - Departure Clinical Impression: Acute pharyngitis Time of Disposition: 14:40 Disposition: Discharge to Home or Self Care Condition: Good Diet: resume usual diet Referrals: Judah Messina III, MD [Primary Care Provider] - 1-2 Weeks Prescriptions: Amoxicillin [Amoxil] 500 mg PO Q8HR #30 cap Home Medications: Ambulatory Orders Ferrous Gluconate 325 mg PO DAILY 12/22/13 Finasteride 5 mg PO DAILY 12/22/13 Hydrochlorothiazide 25 mg PO DAILY 12/22/13 Insulin 70/30 (Human) [Humulin 70/30] 42 units SC BID 12/22/13 Insulin Aspart [Novolog] 16 units SUBCU PRN PRN 12/22/13 Metformin HCl 1,000 mg PO BID 12/22/13 Prazosin HCl 10 mg PO BEDTIME 12/22/13 Ranitidine HCl [Ranitidine [address]] 150 mg PO BID 12/22/13 Zolpidem Tartrate [Ambien] 10 mg PO BEDTIME 12/22/13 Sertraline HCl 200 mg PO DAILY 07/25/15 Atorvastatin Calcium [Lipitor] 20 mg PO BEDTIME 06/09/16 Carvedilol [Coreg] 25 mg PO DAILY 06/09/16 Gabapentin [Neurontin] 100 mg PO BEDTIME 06/09/16 Lisinopril [Prinivil] 20 mg PO BID 09/09/16 B-Complex Vitamins [Vitamin B Complex] 1 tab PO DAILY 05/28/17 Cholecalciferol [Vitamin D] 1,000 unit PO DAILY 05/28/17 Nitroglycerin [Nitrostat] 1 ea SL PRN PRN 05/28/17 [place]-3 Fatty Acids [Fish Oil] 500 mg PO DAILY 05/28/17 Cyclobenzaprine HCl [Flexeril] 10 mg PO Q8HR PRN #15 tab 06/02/17 HYDROcodone 5MG/APAP 325MG [[place] 5/325] 0 ea PO .Q4H #30 tab 06/02/17 Polyethylene Glycol 3350 [Miralax] 17 gm PO DAILY 06/02/17 Amoxicillin [Amoxil] 500 mg PO Q8HR #30 cap 10/28/17
[2017-10-28 15:00] VITALS: BP 188/89; TEMP 97.8; O2SAT 96
== END 2017-10-28 15:04 | disposition home or self-care (01) ==
LOC: ER 13:23
DX: J02.9 Acute pharyngitis, unspecified (principal); E11.9 Type 2 diabetes mellitus without complications; I10 Essential (primary) hypertension; K21.9 Gastro-esophageal reflux disease without esophagitis; Z79.4 Long term (current) use of insulin; Z79.899 Other long term (current) drug therapy

== ENCOUNTER 2017-12-14 14:13 | Emergency (ER) | payer MEDICARE ==
[2017-12-14 14:31] VITALS: TEMP 97.5; O2SAT 97
--- NOTE | 2017-12-14 14:42 | ED.PDOC ---
History of Present Illness - General Chief Complaint: Trauma Stated Complaint: rib pain Time Seen by Provider: 12/14/17 14:35 - History of Present Illness Initial Comments: 76 Y/O MALE, C/O R RIB PAIN. 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 OCC FEELS SOB, HAS CHRONIC COUGH WHICH IS UNCHANGED. DENIES FEVER, PRECORDIAL CP, ABD PAIN, N/V/D, PEDAL EDEMA. NO FALL Allergies/Adverse Reactions: Allergies NO KNOWN ALLERGY Allergy (Verified 12/14/17 14:31) Home Medications: Ambulatory Orders Ferrous Gluconate 325 mg PO DAILY 12/22/13 Finasteride 5 mg PO DAILY 12/22/13 Hydrochlorothiazide 25 mg PO DAILY 12/22/13 Insulin 70/30 (Human) [Humulin 70/30] 42 units SC BID 12/22/13 Insulin Aspart [Novolog] 16 units SUBCU PRN PRN 12/22/13 Metformin HCl 1,000 mg PO BID 12/22/13 Prazosin HCl 10 mg PO BEDTIME 12/22/13 Ranitidine HCl [Ranitidine [address]] 150 mg PO BID 12/22/13 Zolpidem Tartrate [Ambien] 10 mg PO BEDTIME 12/22/13 Sertraline HCl 200 mg PO DAILY 07/25/15 Atorvastatin Calcium [Lipitor] 20 mg PO BEDTIME 06/09/16 Carvedilol [Coreg] 25 mg PO DAILY 06/09/16 Gabapentin [Neurontin] 100 mg PO BEDTIME 06/09/16 Lisinopril [Prinivil] 20 mg PO BID 09/09/16 B-Complex Vitamins [Vitamin B Complex] 1 tab PO DAILY 05/28/17 Cholecalciferol [Vitamin D] 1,000 unit PO DAILY 05/28/17 Nitroglycerin [Nitrostat] 1 ea SL PRN PRN 05/28/17 [place]-3 Fatty Acids [Fish Oil] 500 mg PO DAILY 05/28/17 Cyclobenzaprine HCl [Flexeril] 10 mg PO Q8HR PRN #15 tab 06/02/17 HYDROcodone 5MG/APAP 325MG [[place] 5/325] 0 ea PO .Q4H #30 tab 06/02/17 Polyethylene Glycol 3350 [Miralax] 17 gm PO DAILY 06/02/17 Amoxicillin [Amoxil] 500 mg PO Q8HR #30 cap 10/28/17 Meloxicam [Mobic] 15 mg PO DAILY #15 tab 12/14/17 Review of Systems - Review of Systems Constitutional: Denies: diaphoresis, fever EENTM: Denies: no symptoms reported Respiratory: States: cough, short of breath Cardiology: States: see HPI. Denies: edema, palpitations Gastrointestinal/Abdominal: States: no symptoms reported Genitourinary: States: no symptoms reported Musculoskeletal: States: see HPI Skin: States: no symptoms reported Past Medical History (General) - Patient Medical History Hx Seizures: No Hx Stroke: No Hx Asthma: No Hx of COPD: No Hx Cardiac Disorders: Yes - ID Hx Congestive Heart Failure: No Hx Pacemaker: No Hx Hypertension: Yes Hx Diabetes: Yes Hx Gastroesophageal Reflux: Yes Hx Cancer: No Hx MRSA: No Surgical History: other - Vaccination History Hx Tetanus, Diphtheria Vaccination: No Hx Influenza Vaccination: Yes Hx Pneumococcal Vaccination: Yes - Social History Hx Tobacco Use: Yes Hx Alcohol Use: No Hx Substance Use: No Hx Depression: No Hx Physical Abuse: No Hx Emotional Abuse: No Family Medical History - Family History Father Family History: No Known Physical Exam - Physical Exam General Appearance: Alert, Comfortable, No apparent distress Eye Exam: bilateral normal Ears, Nose, Throat: normal ENT inspection, normal pharynx Neck: non-tender, full range of motion, supple Respiratory: lungs clear, normal breath sounds, no respiratory distress, no accessory muscle use, respiratory distress, other - TENDER TO PALPATION OVER R LOW RIBS. SL ECCHYMOSIS NOTED L FLANK UNDER R RIBS Cardiovascular/Chest: normal peripheral pulses, regular rate, rhythm, no edema, no gallop, no JVD, no murmur Gastrointestinal/Abdominal: normal bowel sounds, non tender, soft, no organomegaly, no pulsatile mass Back Exam: normal inspection, no vertebral tenderness Extremity: normal range of motion, non-tender Neurologic: vegetable thinner II-XII nml as tested, no motor/sensory deficits, alert, normal mood/affect, oriented x 3 Progress - EKG/XRAY/CT Xray Comments: POSS FX TIP OF R 11TH RIB Departure - Departure Clinical Impression: Contusion, chest wall Qualifiers: Encounter type: initial encounter Laterality: right Qualified Code(s): S20.211A - Contusion of right front wall of thorax, initial encounter Time of Disposition: 15:26 Disposition: Discharge to Home or Self Care Condition: Good Departure Forms: ED Discharge - Pt. Copy, Patient Portal Self Enrollment Instructions: DI for Trauma Referrals: Judah Messina III, MD [Primary Care Provider] - 1-2 Weeks Prescriptions: Meloxicam [Mobic] 15 mg PO DAILY #15 tab Home Medications: Ambulatory Orders Ferrous Gluconate 325 mg PO DAILY 12/22/13 Finasteride 5 mg PO DAILY 12/22/13 Hydrochlorothiazide 25 mg PO DAILY 12/22/13 Insulin 70/30 (Human) [Humulin 70/30] 42 units SC BID 12/22/13 Insulin Aspart [Novolog] 16 units SUBCU PRN PRN 12/22/13 Metformin HCl 1,000 mg PO BID 12/22/13 Prazosin HCl 10 mg PO BEDTIME 12/22/13 Ranitidine HCl [Ranitidine [address]] 150 mg PO BID 12/22/13 Zolpidem Tartrate [Ambien] 10 mg PO BEDTIME 12/22/13 Sertraline HCl 200 mg PO DAILY 07/25/15 Atorvastatin Calcium [Lipitor] 20 mg PO BEDTIME 06/09/16 Carvedilol [Coreg] 25 mg PO DAILY 06/09/16 Gabapentin [Neurontin] 100 mg PO BEDTIME 06/09/16 Lisinopril [Prinivil] 20 mg PO BID 09/09/16 B-Complex Vitamins [Vitamin B Complex] 1 tab PO DAILY 05/28/17 Cholecalciferol [Vitamin D] 1,000 unit PO DAILY 05/28/17 Nitroglycerin [Nitrostat] 1 ea SL PRN PRN 05/28/17 [place]-3 Fatty Acids [Fish Oil] 500 mg PO DAILY 05/28/17 Cyclobenzaprine HCl [Flexeril] 10 mg PO Q8HR PRN #15 tab 06/02/17 HYDROcodone 5MG/APAP 325MG [[place] 5/325] 0 ea PO .Q4H #30 tab 06/02/17 Polyethylene Glycol 3350 [Miralax] 17 gm PO DAILY 06/02/17 Amoxicillin [Amoxil] 500 mg PO Q8HR #30 cap 02/11/18 Meloxicam [Mobic] 15 mg PO DAILY #15 tab 12/14/17
[2017-12-14] MEDS ORDERED: KETOROLAC TROMETHAMINE INJ 30 MG/ML VIAL IM ONE (14:45)
--- NOTE | 2017-12-14 15:17 | RAD ---
EXAM DESCRIPTION: Ribs,Right 3 Views CLINICAL HISTORY: PAIN COMPARISON: 01 May 2017 TECHNIQUE: 4 views FINDINGS: No pneumothorax is observed. The ribs are intact. No rib fracturing is detected. IMPRESSION: No rib fracturing is detected. Electronically signed by: Judah Beckett MD 12/14/2017 3:15 PM CDT
[2017-12-14 15:53] VITALS: BP 162/88
== END 2017-12-14 15:35 | disposition home or self-care (01) ==
LOC: ER 14:13
DX: S20.211A Contusion of right front wall of thorax, initial encounter (principal); I25.2 Old myocardial infarction; I10 Essential (primary) hypertension; E11.9 Type 2 diabetes mellitus without complications; K21.9 Gastro-esophageal reflux disease without esophagitis; Z79.4 Long term (current) use of insulin; X58.XXXA Exposure to other specified factors, initial encounter; Y92.9 Unspecified place or not applicable

== ENCOUNTER → 2018-08-22 | Outpatient (CLI) | payer MEDICARE ==
--- NOTE | 2018-08-23 08:36 | MRI ---
Study: MRI of the Lumbar Spine. Indication: LOW BACK PAIN Technique: Multiplanar, multi sequence MRI of the lumbar spine was obtained without intravenous contrast. Comparison: None. Findings: The designated L5-S1 disc space level is visualized on axial T2 image 3. Vertebral body height maintained. No marrow infiltrating lesion. Conus medullaris unremarkable. Pedicles congenitally short throughout. L1-L2: Mild to moderate disc space height loss and disc desiccation. 2.5 mm disc bulge and subtle posterior annular fissuring. Mild bilateral neural foraminal narrowing. No spinal canal narrowing. L2-L3: Mild disc space height loss and disc desiccation. 3 mm disc bulge. Mild bilateral lateral recess narrowing. Moderate left and mild right neural foraminal narrowing. No spinal canal narrowing. Moderate bilateral facet arthrosis. L3-L4: Mild to moderate disc space height loss and disc desiccation. Trace anterolisthesis. 5 mm disc uncovering. Severe bilateral facet arthrosis and prominent ligament flavum buckling. Moderate to severe spinal canal narrowing, mid sagittal thecal sac diameter 5.5 mm. Small left facet joint fusion with a tiny 5 mm synovial cyst extending into the posterior superior margin of the left neural foramen. Moderate to severe bilateral neural foraminal narrowing present. L4-L5: Severe disc space height loss and disc desiccation. Partial osseous fusion across the posterior margin of the disc. Osteophytic spurring across the posterior margin of the discs noted with mild bilateral neural foraminal narrowing. No spinal canal narrowing. Mild bilateral facet arthrosis. L5-S1: Moderate disc space height loss and disc desiccation. 3 mm disc osteophyte complex with moderate bilateral neural foraminal narrowing. Moderate to severe bilateral facet arthrosis. No spinal canal narrowing. 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 Findings most pronounced at L3-L4 as detailed above. Electronically signed by: Mayur Coelho MD 08/23/2018 8:35 AM [employer]
== END ==
LOC: MRI 09:30
PROVIDERS: ATTEND Family Medicine
DX: M51.36 Other intervertebral disc degeneration, lumbar region (principal); M25.78 Osteophyte, vertebrae; M51.86 Other intervertebral disc disorders, lumbar region

== ENCOUNTER 2019-01-02 09:34 | Emergency (ER) | payer MEDICARE ==
--- NOTE | 2019-01-02 10:35 | ED.PDOC ---
History of Present Illness - General Chief Complaint: Respiratory Problem Stated Complaint: cough, pain to right lower lung Time Seen by Provider: 01/02/19 10:25 Source: patient, RN notes reviewed, Vital Signs reviewed Exam Limitations: no limitations - History of Present Illness Comments: started with a productive cough & pleuritic chest pain beginning last night. Fatigue, headaches, no fever. Timing/Duration: yesterday Cough Quality/Degree: moderate, productive cough Improving Factors: nothing Worsening Factors: nothing Associated Symptoms: headache, shortness of breath Allergies/Adverse Reactions: Allergies NO KNOWN ALLERGY Allergy (Verified 12/14/17 14:31) Home Medications: Ambulatory Orders Finasteride 5 mg PO DAILY 12/22/13 Hydrochlorothiazide 25 mg PO DAILY 12/22/13 Insulin 70/30 (Human) [Humulin 70/30] 45 units SC BID 12/22/13 Metformin HCl 1,000 mg PO BID 12/22/13 Prazosin HCl 10 mg PO BEDTIME 12/22/13 Ranitidine HCl [Ranitidine [address]] 150 mg PO BID 12/22/13 Zolpidem Tartrate [Ambien] 10 mg PO BEDTIME 12/22/13 Sertraline HCl 200 mg PO DAILY 07/25/15 Atorvastatin Calcium [Lipitor] 20 mg PO BEDTIME 06/09/16 Carvedilol [Coreg] 25 mg PO DAILY 06/09/16 Gabapentin [Neurontin] 300 mg PO TID 06/09/16 Lisinopril [Prinivil] 20 mg PO BID 09/09/16 B-Complex Vitamins [Vitamin B Complex] 1 tab PO DAILY 05/28/17 Nitroglycerin [Nitrostat] 1 ea SL PRN PRN 05/28/17 [place]-3 Fatty Acids [Fish Oil] 500 mg PO DAILY 05/28/17 Cyclobenzaprine HCl [Flexeril] 10 mg PO Q8HR PRN #15 tab 06/02/17 HYDROcodone 5MG/APAP 325MG [[place] 5/325] 0 ea PO .Q4H #30 tab 06/02/17 Polyethylene Glycol 3350 [Miralax] 17 gm PO DAILY 06/02/17 Meloxicam [Mobic] 15 mg PO DAILY #15 tab 12/14/17 Review of Systems - Review of Systems Constitutional: States: see HPI, malaise EENTM: States: see HPI Respiratory: States: see HPI Cardiology: States: see HPI Gastrointestinal/Abdominal: States: no symptoms reported Genitourinary: States: no symptoms reported Musculoskeletal: States: no symptoms reported Skin: States: no symptoms reported Neurological: States: see HPI Hematologic/Lymphatic: States: no symptoms reported Past Medical History (General) - Patient Medical History Hx Seizures: No Hx Stroke: No Hx Asthma: No Hx of COPD: No Hx Cardiac Disorders: Yes - [place] Hx Congestive Heart Failure: No Hx Pacemaker: No Hx Hypertension: Yes Hx Diabetes: Yes Hx Gastroesophageal Reflux: Yes Hx Cancer: No Hx MRSA: No - Vaccination History Hx Tetanus, Diphtheria Vaccination: No Hx Influenza Vaccination: Yes Hx Pneumococcal Vaccination: Yes - 2015 - Social History Hx Tobacco Use: Yes Hx Alcohol Use: No Hx Substance Use: No Hx Depression: No Hx Physical Abuse: No Hx Emotional Abuse: No Family Medical History - Family History Father Family History: No Known Physical Exam - Physical Exam General Appearance: Alert, Comfortable, No apparent distress ENT Exam: normal ENT inspection Neck: full range of motion, supple, normal inspection Respiratory: lungs clear, normal breath sounds, no respiratory distress Cardiovascular/Chest: regular rate, rhythm, no edema, no JVD, no murmur Gastrointestinal/Abdominal: non tender, soft Extremity: normal inspection, no pedal edema, no calf tenderness, normal capill niko refill Neurologic: alert, normal mood/affect, oriented x 3 Skin Exam: normal color, warm/dry Progress - Progress Progress: 01/02/19 11:41 Says he feels OK. No cough noted. SaO2 93%. We discussed his symptoms & his CXR. I offered further testing (ACS, PE, etc.) but he declines it. Teaching & precautions given. Wants to f/u with his doctor. - EKG/XRAY/CT XRAY: chest - consistent with bronchitis; no infiltrates Departure - Departure Clinical Impression: Bronchitis Time of Disposition: 11:44 Disposition: Discharge to Home or Self Care Condition: Fair Departure Forms: ED Discharge - Pt. Copy, Patient Portal Self Enrollment Instructions: Acute Bronchitis, Adult (DC) Referrals: Judah Messina III, MD [Primary Care Provider] - 01/03/19 Home Medications: Ambulatory Orders Finasteride 5 mg PO DAILY 12/22/13 Hydrochlorothiazide 25 mg PO DAILY 12/22/13 Insulin 70/30 (Human) [Humulin 70/30] 45 units SC BID 12/22/13 Metformin HCl 1,000 mg PO BID 12/22/13 Prazosin HCl 10 mg PO BEDTIME 12/22/13 Ranitidine HCl [Ranitidine [address]] 150 mg PO BID 12/22/13 Zolpidem Tartrate [Ambien] 10 mg PO BEDTIME 12/22/13 Sertraline HCl 200 mg PO DAILY 07/25/15 Atorvastatin Calcium [Lipitor] 20 mg PO BEDTIME 06/09/16 Carvedilol [Coreg] 25 mg PO DAILY 06/09/16 Gabapentin [Neurontin] 300 mg PO TID 06/09/16 Lisinopril [Prinivil] 20 mg PO BID 09/09/16 B-Complex Vitamins [Vitamin B Complex] 1 tab PO DAILY 05/28/17 Nitroglycerin [Nitrostat] 1 ea SL PRN PRN 05/28/17 [place]-3 Fatty Acids [Fish Oil] 500 mg PO DAILY 05/28/17 Cyclobenzaprine HCl [Flexeril] 10 mg PO Q8HR PRN #15 tab 06/02/17 HYDROcodone 5MG/APAP 325MG [[place] 5/325] 0 ea PO .Q4H #30 tab 06/02/17 Polyethylene Glycol 3350 [Miralax] 17 gm PO DAILY 06/02/17 Meloxicam [Mobic] 15 mg PO DAILY #15 tab 12/14/17 Additional Instructions: Return here if any new symptoms or worsening.
--- NOTE | 2019-01-02 11:37 | RAD ---
EXAM DESCRIPTION: Chest,2 Views CLINICAL HISTORY: cough COMPARISON: May 01, 2017 FINDINGS: The cardiomediastinal silhouette is unremarkable. There is no airspace consolidation or pleural effusion. Mild peribronchial cuffing. The lungs are not hyperinflated. There is no pneumothorax or acute fracture. IMPRESSION: Mild peribronchial cuffing suggests bronchitis. No pneumonia or other intrathoracic abnormality to explain cough. Electronically signed by: Barrera Long MD 01/02/2019 11:34 AM CDT
[2019-01-02 11:58] VITALS: BP 154/75; TEMP 99; O2SAT 94
== END 2019-01-02 11:48 | disposition home or self-care (01) ==
LOC: ER 09:34
DX: J40 Bronchitis, not specified as acute or chronic (principal); I25.2 Old myocardial infarction; I10 Essential (primary) hypertension; E11.9 Type 2 diabetes mellitus without complications; K21.9 Gastro-esophageal reflux disease without esophagitis; Z87.891 Personal history of nicotine dependence; Z79.899 Other long term (current) drug therapy; Z79.4 Long term (current) use of insulin

== ENCOUNTER → 2019-02-21 | Outpatient (CLI) | payer MEDICARE ==
--- NOTE | 2019-02-22 18:44 | US ---
EXAM DESCRIPTION: Soft Tissue,Extremity: ULTRASOUND. CLINICAL HISTORY: 68 years Male LUMP COMPARISON: None Available. TECHNIQUE: Transcutaneous scanning: Baer-scale and Doppler modes. FINDINGS: In the region of the palpable lump on the left arm, there is heterogeneity of the subcutaneous tissues but no defined mass. Normal vascularity. No large calcifications. IMPRESSION: No specific solid mass or cyst at the region of interest on the left arm. Consider follow-up scan if pain increases, erythema develops, or palpable region enlarges. Electronically signed by: Kike Cortes MD 02/22/2019 6:42 PM CDT
== END ==
LOC: US 12:01
PROVIDERS: ATTEND Nurse Practitioner Family
DX: M25.512 Pain in left shoulder (principal); R22.9 Localized swelling, mass and lump, unspecified

== ENCOUNTER → 2019-05-01 | Outpatient (CLI) | payer MEDICARE, OTHER | LOC: GMAL 10:25 | PROVIDERS: ATTEND Family Medicine | DX: D51.3 Other dietary vitamin B12 deficiency anemia (principal); I10 Essential (primary) hypertension; D53.9 Nutritional anemia, unspecified; R53.82 Chronic fatigue, unspecified; E55.9 Vitamin D deficiency, unspecified; E78.49 Other hyperlipidemia; Z12.5 Encounter for screening for malignant neoplasm of prostate | CPT/HCPCS: 82306; 82607; 82728; 83540; 83550; 84443; G0103 ==

== ENCOUNTER → 2019-05-30 | Outpatient (CLI) | payer MEDICARE, OTHER ==
--- NOTE | 2019-05-31 12:05 | CT ---
Procedure: CT LUNG SCREENING Exam Date: 2018. Ordering Provider: Shahab Alcantar Clinical Indication: PERSONAL HISTORY OF TOBACCO USE . Smoking cessation 15 years. 120 pack years. This patient meets eligibility criteria for low-dose CT lung cancer screening. Comparison: CT scan of the chest without contrast 08/30/2015. Technique: Using a multislice scanner, sequential helical axial imaging was obtained in the thorax, 2.5 mm thickness, 2.5 mm separation, from the level of the thoracic inlet through the lung bases without IV contrast. A low dose protocol was utilized for BMI greater than than 30: BMI: 34.7. CTDI: 2.94 mGy. 120. kVp. 45 mA. DLP: 105.64 mGy-centimeters. 2D sagittal and coronal reconstructed images, 6.0 mm thickness, were obtained. This exam was performed according to our departmental dose optimization program which includes use of automated exposure control, adjustment of the mA and/or kV according to patient size and/or use of iterative reconstruction technique. Nodule measurements under 10 mm are given as mean value of 3 axes diameters. FINDINGS: Lungs and large airways: Bilateral parenchymal blebs in a centrilobular distribution more prevalent in the upper lung thao. Minimal bilateral pleural parenchymal scarring in the lower lobes and also inferior right upper lobe. No abnormal nodules or masses. No focal infiltrates. Pleura and space: Bilateral thickening with no effusion or pneumothorax. Mediastinum and perla: evaluation limited by low dose technique and lack of IV contrast. Negative Heart and great vessels: Atherosclerotic calcification and stents in the coronary arteries. Calcification also in the aorta and proximal brachiocephalic vessels. Chest wall, lower neck, axillae: Evaluation also limited by same factors as described above. Small bilateral axillary nodes. Upper abdomen: Evaluation limited by low-dose technique. No free air or free fluid. Normal density of the adrenal glands and spleen. Gallbladder partially visualized. Osseous structures: Evaluation limited by low dose MIP technique. Spondylosis in the thoracic spine. Minimal arthrosis in the bilateral costochondral junctions first rib. No lytic or blastic lesions. IMPRESSION: Minimal emphysematous changes. No abnormal nodules, no focal masses or infiltrates.. Please see below for Lung RADS category and FOLLOW-UP.* *Lung RADS category Category 1 - No nodule or definitely benign nodules (probability of malignancy less than 1%). Follow-up: Continue annual screening with Low Dose Chest CT in 12 months. Electronically signed by: Kike Cortes MD 05/31/2019 12:04 PM CDT
== END ==
LOC: CT 08:51
PROVIDERS: ATTEND Family Medicine
DX: Z87.891 Personal history of nicotine dependence (principal); J43.9 Emphysema, unspecified

== ENCOUNTER → 2019-09-18 | Outpatient (CLI) | payer MEDICARE | LOC: GMAL 10:30 | PROVIDERS: ATTEND Family Medicine | DX: D50.8 Other iron deficiency anemias (principal); E55.9 Vitamin D deficiency, unspecified; I10 Essential (primary) hypertension; E11.42 Type 2 diabetes mellitus with diabetic polyneuropathy; Z79.899 Other long term (current) drug therapy ==

== ENCOUNTER → 2020-06-04 | Outpatient (CLI) | payer MEDICARE | LOC: GMAL 10:30 | PROVIDERS: ATTEND Family Medicine | DX: D51.3 Other dietary vitamin B12 deficiency anemia (principal); E11.9 Type 2 diabetes mellitus without complications; E55.9 Vitamin D deficiency, unspecified; Z12.5 Encounter for screening for malignant neoplasm of prostate; Z79.899 Other long term (current) drug therapy | CPT/HCPCS: 82306; 82607; 84443; G0103 ==